=== PATIENT | male | born 1955 | race Caucasian/White ===

== ENCOUNTER 2023-06-08 06:33 | Outpatient (CLI) | payer MEDICARE, MEDICAID, SELFPAY ==
[2023-06-08] VITALS (7 sets, daily range): BP systolic 90–165; BP diastolic 57–101; PULSE 61–71; RESP 18; O2SAT 97–100; BMI 40.0
--- NOTE | 2023-06-08 06:38 | CT_ITS ---
APPROVED REPORT Computer Network Specialist: CLINICAL INDICATION Chest Pain TECHNIQUE Image Acquisition: A 128 slice MDCT scanner ([employer] View) was used for data acquisition. A noncontrast coronary calcium scan was performed. A CT attenuation threshold of 130 Hounsfield units (HU) was used for the detection of calcium in contiguous voxels of 1 sq mm in area to be counted as individual lesions. Bolus tracking in the ascending aorta with a threshold of 180 HU was performed. Immediately afterwards, ECG synchronized cardiac CT was then performed from the cardiac base to apex using retrospective gating with ECG tube current modulation. A total of 85 mL of Isovue 370 mg/mL contrast medium was administered at 5 mL/sec followed by a saline flush using a biphasic injection protocol. A tube voltage of 120 KVp was used. The patient received the following medications prior to the cardiac CT. 75 mg of oral metoprolol 5 mg of intravenous metoprolol 15 mg of oral ivabradine 0.8 mg of sublingual nitroglycerin The average heart rate at the time of acquisition was 58 bpm and regular. Image Reconstruction Transaxial images were reconstructed at 0.67 mm slide thickness. Data was reviewed interactively on an advanced workstation capable of 2 and 3-dimensional displays in all conventional reconstruction formats, including multiplanar reformations, maximum intensity projections, curved multiplanar reformations, and volume rendered reconstructions. When applicable, selected routine images describing the relevant coronary anatomy and pathology were saved and sent to PACS. Complications None Technical Quality Overall image quality was good. Coronary artery opacification was adequate. Total DLP (Dose-Length Product) is 2522.2 mGy-cm. The reported value represents the total of one or more individual components during the CT acquisition of this date and at this time, and as such, the same value may appear in more than one CT report depending on the interpreting/reporting physicians. COMPARISON None FINDINGS CT Coronary Calcium Scoring LMA (Left Main Artery) = 117 LAD (Left Anterior Descending) = 1306 LCX (Left Coronary Circumflex) = 67 RCA (Right Coronary Artery) = 1423 Total Calcium Score = 2913 using the AJ-130 method. The observed calcium score of 2913 is at 97th percentile for subjects of the same age, sex, and race/ethnicity. The interpretation of the calcium heart score is based on the following continuum*: 0 = no calcified plaque detected (risk of coronary artery disease is very low ??? less than 5%) 1-10 = calcium detected in extremely minimal levels (risk of coronary diseases is still low ??? less than 10%) 11-100 = mild levels of plaque detected with certainty (mild or minimal narrowing of heart arteries is likely) 101-400 = definite,at least moderate levels of plaque detected (relatively high risk of a heart attack within 3-5 years) >401-999 = extensive levels of plaque detected (high risk of heart attack, high levels of vascular disease are present, high likelihood of at least one significant coronary narrowing) *The calcium heart score quantifies the burden of coronary calcification/plaque in the coronary arteries. The calcium heart score is not able to evaluate the presence or burden of non-calcified (i.e. soft) plaque. There is also identifiable calcification in the aortic valve and ascending and descending thoracic aorta. Coronary CT Angiography The coronary arterial system is right dominant. Quantitative Stenosis Grading: Left Main (LM): The left main originates normally from the left sinus of Valsalva. The LM bifurcates into the left anterior descending artery and left circumflex artery. There is calcified plaque noted in the distal LM, with approximately 30-50% luminal stenosis. Left Anterior Descending (LAD) and Diagonal Branches: The LAD gives off 2 diagonal branch(es). There is mixed calcified/noncalcified plaque noted in the proximal and mid LAD segments (involving the diagonal branches) with up to 70-90% luminal stenosis. There is no evidence of LAD-myocardial bridge. Left Circumflex (LCX) and Obtuse Marginals (OM): The LCX gives off 1 Obtuse Marginal (OM) branch(es). There is mixed calcified/noncalcified plaque noted in the mid LCx, with incomplete opacification distally. Findings are suggestive of possible total/subtotal occlusion. Right Coronary Artery (RCA): The RCA originates normally from the right sinus of Valsalva. The RCA gives off a posterior descending artery (PDA) and posterolateral (PL) branches. There is mixed calcified/noncalcified plaque along the RCA (involving the ostial RCA), with approximately 50-70% luminal stenosis. Distally, there is additional vascular opacification noted, suggestive of presence of right to left collaterals. Non-Coronary Cardiac Findings: Analysis of the left ventricular (LV) structure and function was performed after 3-D reconstruction of the LV from axial images, with user-corrected automatic contouring for assessment of LV volumes and user-defined reconstruction from oblique planes for measurement of 3-D cardiac structure and function. -The left ventricle systolic function is normal. There is hypokinesis of the septal, inferior septal, and anterior septal LV beltran. -There is no left atrial appendage filling defect. Two right pulmonary veins and two left pulmonary veins drain normally into the left atrium. -No pericardial thickening or calcification. -Central and branch pulmonary arteries in the [id number] are unremarkable. -Thoracic aorta within the visualized thoracic aortic-branches in the [id number] is unremarkable. Extracardiac Structures No significant extra-cardiac findings. Note, however, that this study is focused on the cardiac findings. IMPRESSION -Extensive coronary calcification with an Agatston score = 2913 using the AJ-130 method. -The observed calcium score of 2913 is at 97th percentile for subjects of the same age, sex, and race/ethnicity. -Triple-vessel atherosclerotic coronary disease with presence of significant flow-limiting plaque in the LAD, LCx, and RCA. There is possible total/subtotal occlusion of the LCx with collateralization from the RCA. -CAD-RADS 5. Management recommendations per ACC/AHA guidelines*, as clinically appropriate. -Normal global LV systolic function. Hypokinesis of the septal, inferior septal, and anterior septal LV beltran. *Recommendations: CAD RADS 0: Reassurance. Consider non-atherosclerotic causes of chest pain. CAD RADS 1: Consider non-atherosclerotic causes of chest pain. Consider preventive therapy and risk factor modification. CAD RADS 2: Consider non-atherosclerotic causes of chest pain. Consider preventive therapy and risk factor modification, particularly for patients with nonobstructive plaque in multiple segments. CAD RADS 3: Consider further functional testing. Consider symptom-guided anti-ischemic and preventive pharmacotherapy as well as risk factor modification per published guideline statements. CAD RADS 4A: Consider further functional testing or invasive coronary angiography with revascularization per published guideline statements. Consider symptom-guided anti-ischemic and preventive pharmacotherapy as well as risk factor modification per published guideline statements. CAD RADS 4B: Invasive coronary angiography recommended with revascularization per published guideline statements. Consider symptom-guided anti-ischemic and preventive pharmacotherapy as well as risk factor modification per published guideline statements. CAD RADS 5: Consider invasive angiography and/or viability assessment with revascularization per published guideline statements. Consider symptom-guided anti-ischemic and preventive pharmacotherapy as well as risk factor modification per published guideline statements. CRITICAL RESULT None COMMUNICATION Per this written report The coronary and cardiac findings of this CCTA were reviewed, reported, and signed by Reid May MD (Plow [employer]aker) Conclusion Electronically signed by : Melissa May MD 06/13/2023 16:10:44
[2023-06-08] MEDS: METOPROLOL TARTRATE 50MG TABLET PO (07:52)
[2023-06-08] MEDS: IVABRADINE HCL 7.5MG TABLET PO (07:52)
[2023-06-08] MEDS: METOPROLOL TARTRATE 25MG TABLET 25 MG (07:52)
[2023-06-08 08:03] LABS: POC Glucose,Bedside 95 (70-110)
--- NOTE | 2023-06-08 08:43 | CA_ITS ---
APPROVED REPORT EXAM: Comprehensive 2D, Doppler, and color-flow Echocardiogram Stockfeed Miller: Marlyn Reilly, JAIRON, RVS Ht: 6 ft 0 in Wt: 297lbs BSA: 2.52 BP: 130/66 mmHg Indications: Abn ekg,HTN, DM, Obesity, Smoker, SOB 2D Dimensions IVSd 0.00 cm LVEF (Visual) 26.70 % PWd 0.00 cm LA Volume 46.50 mL LVDd 1.12 cm LA Volume Index 18.458234 mL/m2 (M/F) 16-34 LVDs 4.04 cm EF AP4 47.70 % Aortic Root 3.13 cm GL Strain -18.1 % Left Atrium 3.62 cm LVOT 2.18 cm (M/F) 1.5-2.5 M-Mode Dimensions LVDd 1.12 cm (3.5-5.7) LVDs 4.04 cm (3.5-5.7) IVSd 0.00 cm (0.6-1.1) PWd 0.00 cm (0.6-1.1) EPSs 0.64 cm FS 10.40% LV Diastology E Decel Time 231 (160-240 msec) E/A Ratio 0.99 MED E' 6.1 (>= 7 cm/sec) MED A' 8.90 cm/s E'/MED E' Ratio 10.79 (<= 14) LAT E' 5.7 (>= 10 cm/sec) LAT A' 9.30 cm/s E/LAT E' Ratio 11.54 (<= 14) Aortic Valve LVOT Max 84.0 (70-110 cm/s) CASANDRA Index 0.56 cm2/m2 LVOT VTI 17.95 cm AoV Peak Christiano. 217.0 (50-130 cm/s) AO Mean GR. 9.40 (<5 mmHg) AO VTI 47.9 (18-25 cm) CASANDRA (VTI) 1.40 (2.5-4.5 cm2) Mitral Valve MV E Max Christiano. 66.0 (40-130 cm/s) MV A Velocity 67.0 (40-130 cm/s) E/A Ratio 0.99 MV Decel. Time 231 (160-240 ms) Left Ventricle The left ventricle is normal size. The left ventricular systolic function is low normal. There is increased LV wall thickness. There is severe hypokinesis of the basal to mid inferior, inferoseptal, and inferolateral LV beltran. The left ventricular diastolic function is normal. LVEF is 50%. Right Ventricle The right ventricle is normal size. The right ventricular systolic function is normal. Atria The left atrium size is normal. The right atrium size is normal. There is no Doppler evidence of interatrial shunt. Aortic Valve The aortic valve is mildly thickened. There is no aortic valvular stenosis. No aortic regurgitation is present. Mitral Valve The mitral valve is mildly thickened. No evidence of mitral valve stenosis. Trace mitral regurgitation. Tricuspid Valve The tricuspid valve leaflets are thin and pliable. Trace tricuspid regurgitation. Pulmonic Valve The pulmonary valve is normal in structure. Trace pulmonic regurgitation. Great Vessels The aortic root is normal in size. The ascending aorta is not well-visualized. IVC is normal in size and collapses >50% with inspiration. Pericardium There is no pericardial effusion. Other Information Study Quality: Fair Conclusion Low normal LV systolic function (LVEF 50%). Severe hypokinesis of the basal to mid inferior, inferoseptal, and inferolateral LV beltran. No significant valvular stenosis or regurgitation. Electronically signed by : Melissa May MD 06/11/2023 01:31:32
[2023-06-08] MEDS: NITROGLYCERIN 0.4MG SL TABLET SL (09:10)
[2023-06-08] MEDS: METOPROLOL TARTRATE 5MG/5ML VIAL 5 MG IV (09:20)
[2023-06-08] MEDS: IOPAMIDOL-370 (76%);100ML BOTTLE 85 ML IV (09:34)
[2023-06-08] MEDS: 0.9 % SODIUM CHLORIDE 50 ML VIAL IV (09:34)
[2023-06-08] MEDS: SODIUM CHLORIDE 0.9% 10ML SYR (RAD ONLY) 10 ML IV (09:35)
== END 2023-06-08 09:43 | disposition home or self-care (01) ==
PROVIDERS: PCP Emergency Medicine; Visit Provider Physician Assistant
DX: I10 Essential (primary) hypertension (principal); R94.31 Abnormal electrocardiogram [ECG] [EKG]; F17.200 Nicotine dependence, unspecified, uncomplicated; R06.09 Other forms of dyspnea; I51.89 Other ill-defined heart diseases; E11.9 Type 2 diabetes mellitus without complications; Z79.4 Long term (current) use of insulin; E66.9 Obesity, unspecified; I25.10 Atherosclerotic heart disease of native coronary artery without angina pectoris
CPT/HCPCS: 75571; 75574; 82962; 93306; Q9967

== ENCOUNTER 2023-06-20 07:23 | Day surgery (SDC) | payer MEDICARE, MEDICAID, SELFPAY ==
[2023-06-20] VITALS (12 sets, daily range): BP systolic 126–199; BP diastolic 64–110; PULSE 62–85; RESP 17–18; TEMP 36.6–36.7; O2SAT 92–99; BMI 40.2
--- NOTE | 2023-06-20 07:06 | IR_ITS ---
APPROVED REPORT Patient Location: Outpatient PROCEDURES Left heart catheterization Left ventriculogram Selective coronary angiogram Selective engage the left subclavian artery with subclavian artery angiography INDICATION High risk CCTA, Known coronary artery disease, Angina pectoris, Abnormal echocardiogram, Preoperative evaluation to evaluate subclavian stenosis Informed consent was obtained prior to the procedure. COMPLICATIONS NONE Estimated Blood Loss: LESS THAN 10 ML TECHNIQUE One percent lidocaine used to anesthetize the right anterior aspect of the wrist. The right radial artery was accessed via the Seldinger technique. A 6 [place] sheath was placed in the right radial artery. 2.5 mg of Verapamil, 800 mcg of nitroglycerin, 1mg Lidocaine and 5000 U Heparin were given through the arterial sheath. The papa catheter was also used to perform left heart catheterization, left ventriculogram and selective coronary angiogram. After was determined patient would be referred for bypass surgery the catheter is placed in left subclavian artery and left subclavian artery angiography was performed to determine if the subclavian artery and left internal mammary artery were patent. At the end of the procedure the sheath was removed good hemostasis was achieved using Traclet band, patient was transferred to the postop holding area in stable condition. ANGIOGRAPHIC RESULTS The left main artery Is proximal and distal 30% stenoses The left anterior descending artery Is an ostial 40% stenosis followed by additional tandem 80% stenoses. First diagonal artery is a mid vessel 50% stenosis The circumflex artery Is nondominant and has proximal 50 followed by a calcified concentric 90% stenosis The right coronary artery Large dominant with diffuse mild to moderate vascular ectasia. There is a proximal 20 to 30% stenosis followed by an eccentric calcified 70% stenosis followed by additional 30% stenoses distally. There is an additional distal 60% eccentric calcified stenosis in the distal right coronary prior to the bifurcation. The posterior descending artery is large and has mid vessel and distal calcified 90% stenosis. A large posterior lateral branch has a mid vessel 90% stenosis The MADRIGAL ventriculogram reveals 50% The left ventricular end-diastolic pressure 10 mmHg Left subclavian artery is widely patent IMPRESSION Severe to critical three-vessel coronary disease as described above Preserved ejection fraction Normal LVEDP Widely patent left subclavian artery PLAN 1. Patient will be referred to [facility] for coronary bypass surgery evaluation 2. Continue high intensity statin along with aspirin 81 mg daily 3. Medical management for coronary disease Electronically signed by : Rohith Fisher MD 06/20/2023 11:25:10
--- NOTE | 2023-06-20 07:57 | SUR.PREOP ---
Pt states it is normally very difficult to obtain IV access on him and usual has to use an ultrasound to obtain access, asked patient if it was okay if we attempted IV access without using an US, pt agreeable, IV access obtained in right AC after 1 attempted, pt tolerated well.
[2023-06-20 08:03] LABS: Chloride 105 mmol/L (98-107)
[2023-06-20 08:04] LABS: Potassium 4.1 mmoL/L (3.5-5.1); Sodium 138 mmol/L (136-145)
[2023-06-20 08:07] LABS: Anion Gap 7.1 mEq/L (5-15); Blood Urea Nitrogen 16 mg/dl (9-20); Calcium 9.5 mg/dl (8.4-10.2); Carbon Dioxide 30 mmol/L (22.0-30.0); Creatinine Clearance Estimated 102 mL/min (50-200); Estimated Glomerular Filt Rate 55 ml/min (>60); GFR (African American) 66 ML/MIN (>60); Glucose 84 mg/dl (74-100)
[2023-06-20 08:12] LABS: Basophils # 0.1 K/mm3 (0-0.2); Basophils % 0.9 % (0.1-2.0); Eosinophils # 0.2 K/mm3 (0.0-0.4); Eosinophils % 2.7 % (0.1-12.0); Hematocrit 42.9 % (42.0-52.0); Hemoglobin 14.1 g/dL (14.1-18.0); Lymphocytes # 1.4 K/mm3 (0.7-4.5); Lymphocytes % 25.9 % (10-50); Mean Corpuscular HGB Conc 32.8 g/dL (31.8-35.4); Mean Corpuscular Hemoglobin 31.4 pg (27.0-31.2); Mean Corpuscular Volume 95.8 fl (80-94); Mean Platelet Volume 8.5 fl (7.4-10.4); Monocytes # 0.4 K/mm3 (0.1-1.0); Monocytes % 6.3 % (1.7-9.3); Neutrophils # 3.5 K/mm3 (1.8-7.8); Neutrophils % 64.3 % (37.0-80.0); Platelet Count 195 K/mm3 (142-424); Red Blood Count 4.48 M/mm3 (4.60-6.20); Red Cell Distribution Width 14.6 % (11.5-17.5); White Blood Count 5.5 K/mm3 (4.8-10.8)
[2023-06-20] MEDS: 0.9 % SODIUM CHLORIDE 500 ML 25 ML IV (09:30)
[2023-06-20] MEDS: HEPARIN 1,000 UNITS/500ML NS (CATH LAB) 3000 UNIT IV (09:30)
[2023-06-20] MEDS: LIDOCAINE 1% 10ML MDV 20 ML IJ (09:30)
[2023-06-20] MEDS: NITROGLYCERIN 800MCG/8ML SYR (CATH LAB) 800 MCG IA (09:31)
[2023-06-20] MEDS: VERAPAMIL 2.5MG/ML 2ML VIAL 2.5 MG IV (09:31)
[2023-06-20] MEDS: diphenhydrAMINE 50MG/ML VIAL 50 MG IV (09:31)
[2023-06-20] MEDS: HEPARIN 1,000 UNITS/ML 10ML VIAL (CATH LAB) 10000 UNIT IV (09:31)
[2023-06-20] MEDS: FENTANYL 100MCG/2ML VIAL 50 MCG IV (09:48)
[2023-06-20] MEDS: MIDAZOLAM HCL 1MG/1ML 5ML VIAL 1 MG IV (09:48)
[2023-06-20] MEDS: IOPAMIDOL-370 (76%);100ML BOTTLE 80 ML IV (13:13)
== END 2023-06-20 13:18 | disposition home or self-care (01) ==
PROVIDERS: PCP Emergency Medicine; Visit Provider Internal Medicine
DX: I25.10 Atherosclerotic heart disease of native coronary artery without angina pectoris (principal); R94.31 Abnormal electrocardiogram [ECG] [EKG]; F17.210 Nicotine dependence, cigarettes, uncomplicated; I10 Essential (primary) hypertension; Z79.899 Other long term (current) drug therapy; E11.9 Type 2 diabetes mellitus without complications; Z79.4 Long term (current) use of insulin; Z79.85 Long-term (current) use of injectable non-insulin antidiabetic drugs
CPT/HCPCS: 36225; 80048; 85025; 93458; 99152; C1725; C1760; C1769; J1644; Q9967

== ENCOUNTER 2023-09-27 14:59 | Outpatient (CLI) | payer MEDICARE, MEDICAID, SELFPAY ==
[2023-09-27 15:34] LABS: Basophils % 0.5 % (0.1-2.0); Eosinophils # 0.1 K/mm3 (0.0-0.4); Eosinophils % 2.6 % (0.1-12.0); Hematocrit 36.4 % (42.0-52.0); Hemoglobin 11.5 g/dL (14.1-18.0); Lymphocytes # 1.2 K/mm3 (0.7-4.5); Lymphocytes % 21.2 % (10-50); Mean Corpuscular HGB Conc 31.6 g/dL (31.8-35.4); Mean Corpuscular Hemoglobin 26.6 pg (27.0-31.2); Mean Corpuscular Volume 84.2 fl (80-94); Mean Platelet Volume 8.2 fl (7.4-10.4); Monocytes # 0.3 K/mm3 (0.1-1.0); Monocytes % 5.2 % (1.7-9.3); Neutrophils # 3.9 K/mm3 (1.8-7.8); Neutrophils % 70.5 % (37.0-80.0); Platelet Count 242 K/mm3 (142-424); Red Blood Count 4.32 M/mm3 (4.60-6.20); Red Cell Distribution Width 16.8 % (11.5-17.5); White Blood Count 5.5 K/mm3 (4.8-10.8)
[2023-09-27 16:11] LABS: Alanine Aminotransferase 32 U/L (12-78); Albumin Level 3.9 g/dl (3.5-5.0); Alkaline Phosphatase 60 U/L (38-126); Anion Gap 9.4 mEq/L (5-15); Aspartate Amino Transferase 49 U/L (17-59); Bilirubin,Indirect 0.5 mg/dL (0.0-0.9); Bilirubin,Total 0.5 mg/dl (0.2-1.3); Bilirubin,Unconjugated 0.5 mg/dL (0.0-1.1); Blood Urea Nitrogen 21 mg/dl (9-20); Calcium 9.5 mg/dl (8.4-10.2); Carbon Dioxide 28 mmol/L (22.0-30.0); Chloride 101 mmol/L (98-107); Chol/HDL Ratio 3.9 (1-3.5); Cholesterol 124 mg/dl (140-200); Creatinine Clearance Estimated 107 mL/min (50-200); Estimated Glomerular Filt Rate 60 ml/min (>60); GFR (African American) 72 ML/MIN (>60); Glucose 208 mg/dl (74-100); HDL Cholesterol 32 mg/dl (40-60); Magnesium 1.6 mg/dl (1.6-2.3); Potassium 4.4 mmoL/L (3.5-5.1); Sodium 134 mmol/L (136-145); Total Protein,Serum 6.6 g/dl (6.3-8.2); Triglycerides 160 mg/dl (30-150); VLDL Cholesterol 32 mg/dL (0-40)
[2023-09-27 16:22] LABS: Direct LDL Cholesterol 66.07 mg/dL (100-129)
[2023-09-27 16:26] LABS: Free T4 (Free Thyroxine) 3.14 ng/dl (0.78-2.19)
[2023-09-27 16:41] LABS: Thyroid Stimulating Hormone < 0.02 uIU/mL (0.465-4.68)
[2023-09-27 17:17] LABS: Folate > 20.00 ng/mL; Vitamin B12 874 pg/mL (239-931)
[2023-09-27 18:33] LABS: Iron 42 ug/dL (49-181)
[2023-09-27 18:42] LABS: Total Iron Binding Capacity 461 ug/dL (261-462)
[2023-09-27 19:24] LABS: Ferritin 17.2 ng/ml (17.9-464)
== END 2023-09-27 23:59 | disposition home or self-care (01) ==
LOC: LAB 15:01
PROVIDERS: PCP Emergency Medicine; Visit Provider Internal Medicine
DX: R42 Dizziness and giddiness (principal); R53.83 Other fatigue; R94.31 Abnormal electrocardiogram [ECG] [EKG]; E11.9 Type 2 diabetes mellitus without complications; Z95.1 Presence of aortocoronary bypass graft; R06.00 Dyspnea, unspecified; I10 Essential (primary) hypertension; G25.81 Restless legs syndrome; M79.661 Pain in right lower leg
CPT/HCPCS: 36415; 80048; 80061; 80076; 82607; 82728; 82746; 83540; 83550; 83735; 84439; 84443; 85025; 93225; 93227

== ENCOUNTER 2023-09-29 15:22 | Outpatient (CLI) | payer MEDICARE, MEDICAID, SELFPAY ==
[2023-09-27 15:34] LABS: Basophils % 0.5 % (0.1-2.0); Eosinophils # 0.1 K/mm3 (0.0-0.4); Eosinophils % 2.6 % (0.1-12.0); Hematocrit 36.4 % (42.0-52.0); Hemoglobin 11.5 g/dL (14.1-18.0); Lymphocytes # 1.2 K/mm3 (0.7-4.5); Lymphocytes % 21.2 % (10-50); Mean Corpuscular HGB Conc 31.6 g/dL (31.8-35.4); Mean Corpuscular Hemoglobin 26.6 pg (27.0-31.2); Mean Corpuscular Volume 84.2 fl (80-94); Mean Platelet Volume 8.2 fl (7.4-10.4); Monocytes # 0.3 K/mm3 (0.1-1.0); Monocytes % 5.2 % (1.7-9.3); Neutrophils # 3.9 K/mm3 (1.8-7.8); Neutrophils % 70.5 % (37.0-80.0); Platelet Count 242 K/mm3 (142-424); Red Blood Count 4.32 M/mm3 (4.60-6.20); Red Cell Distribution Width 16.8 % (11.5-17.5); White Blood Count 5.5 K/mm3 (4.8-10.8)
[2023-09-27 16:11] LABS: Alanine Aminotransferase 32 U/L (12-78); Albumin Level 3.9 g/dl (3.5-5.0); Alkaline Phosphatase 60 U/L (38-126); Anion Gap 9.4 mEq/L (5-15); Aspartate Amino Transferase 49 U/L (17-59); Bilirubin,Indirect 0.5 mg/dL (0.0-0.9); Bilirubin,Total 0.5 mg/dl (0.2-1.3); Bilirubin,Unconjugated 0.5 mg/dL (0.0-1.1); Blood Urea Nitrogen 21 mg/dl (9-20); Calcium 9.5 mg/dl (8.4-10.2); Carbon Dioxide 28 mmol/L (22.0-30.0); Chloride 101 mmol/L (98-107); Chol/HDL Ratio 3.9 (1-3.5); Cholesterol 124 mg/dl (140-200); Creatinine Clearance Estimated 107 mL/min (50-200); Estimated Glomerular Filt Rate 60 ml/min (>60); GFR (African American) 72 ML/MIN (>60); Glucose 208 mg/dl (74-100); HDL Cholesterol 32 mg/dl (40-60); Magnesium 1.6 mg/dl (1.6-2.3); Potassium 4.4 mmoL/L (3.5-5.1); Sodium 134 mmol/L (136-145); Total Protein,Serum 6.6 g/dl (6.3-8.2); Triglycerides 160 mg/dl (30-150); VLDL Cholesterol 32 mg/dL (0-40)
[2023-09-27 16:22] LABS: Direct LDL Cholesterol 66.07 mg/dL (100-129)
[2023-09-27 16:26] LABS: Free T4 (Free Thyroxine) 3.14 ng/dl (0.78-2.19)
[2023-09-27 16:41] LABS: Thyroid Stimulating Hormone < 0.02 uIU/mL (0.465-4.68)
[2023-09-27 17:17] LABS: Folate > 20.00 ng/mL; Vitamin B12 874 pg/mL (239-931)
[2023-09-27 18:33] LABS: Iron 42 ug/dL (49-181)
[2023-09-27 18:42] LABS: Total Iron Binding Capacity 461 ug/dL (261-462)
[2023-09-27 19:24] LABS: Ferritin 17.2 ng/ml (17.9-464)
== END 2023-09-29 23:59 | disposition home or self-care (01) ==
LOC: RT 15:23
PROVIDERS: PCP Emergency Medicine; Visit Provider Internal Medicine
DX: R42 Dizziness and giddiness (principal); I10 Essential (primary) hypertension; E11.9 Type 2 diabetes mellitus without complications; R53.83 Other fatigue; R94.31 Abnormal electrocardiogram [ECG] [EKG]; Z95.1 Presence of aortocoronary bypass graft; Z68.39 Body mass index [BMI] 39.0-39.9, adult; F17.210 Nicotine dependence, cigarettes, uncomplicated
CPT/HCPCS: 36415; 80048; 80061; 80076; 82607; 82728; 82746; 83540; 83550; 83735; 84439; 84443; 85025; 93270

== ENCOUNTER 2023-10-05 11:09 | Outpatient (CLI) | payer MEDICARE, MEDICAID, SELFPAY ==
--- NOTE | 2023-10-05 | CA_ITS ---
APPROVED REPORT Exam: Pharmacologic Technologist: Maria G Rodgers, Ht: 6 ft 0 in Wt: 292 lbs BSA: 2.50 m2 HR: 77 bpm BP: 144/66 mmHg Indications: Fatigue, dizziness, dyspnea Medical History Medications: Omeprazole,,,,, Levothyroxine,,,,, Aspirin,,,,, Gabapentin,,,,, Metoprolol Tartrate,,,,, Glimepiride,,,,, Ropinirole,,,,, TAMSULOSIN,,,,, INSULIN,,,,, Albuterol,,,,, FeNOfibrate,,,,, Cyclobenzaprine,,,,, Stress Test Details Test: LEXISCAN Reason for pharmacologic stress test: physical limitation. HR Resting HR: 77 bpm Max Heart Rate (APMHR): 150 bpm Max HR Achieved: 88 bpm Target HR (85% APMHR): 128 bpm % of APMHR: 59 Recovery HR: 84 bpm BP Resting BP: 144.0/66.0 mmHg Max BP: 144.0/66.0 mmHg Recovery BP: 127.0/58.0 mmHg ECG Resting ECG: NSR, right axis deviation, old high lateral UT, ST-T abns inferiorly & laterally Stress ECG: No significant ST changes Arrhythmia: None Clinical Exercise duration: 04:02 min Highest Stage Achieved: Exercise capacity: 1.0 METs Stress ECG Conclusion Symptoms: Mild SOA, head discomfort. No CP. Arrhythmias/Ectopy: None ST-T Changes: No significant ST changes. Conclusion: Unremarkable Lexiscan stress. Myoview images reported separately. Test Summary REST . . . . . . . Resting REST 07:54 . . 77 . 144/ 66 . . Stage 1 01:00 . . 85 . . . . Stage 2 01:00 . . 85 . . . . Stage 3 01:00 . . 88 . 102/ 46 . . Stage 4 01:00 . . 85 . 103/ 50 . . Stage 4 01:02 . . 85 . 103/ 50 . Stop exercise at 04:02 RECOVERY 01:00 . . 83 . 114/ 55 . . RECOVERY 02:00 . . 85 . 121/ 56 . . RECOVERY 03:00 . . 84 . 121/ 56 . . RECOVERY 03:33 . . 84 . 127/ 58 . . Electronically signed by : Melissa May MD 10/05/2023 19:36:56
--- NOTE | 2023-10-05 11:11 | NM_ITS ---
APPROVED REPORT Exam: Nuclear Stress Test Indication: CABG, HTN, DM, HYPERLIPIDEMIA, FORMER SMOKER, SOB, FATIGUE Patient Location: Outpatient Stress Tech: Maria G Paz OR Tech:STEPHANIE Haas RT (R)(N)(M) Ht: 6 ft 0 in Wt: 285 lbs HR: 77 bpm BP: 144/66 mmHg BSA: 2.48 m2 Rhythm: NSR TID: 1.31 History: CABG, HTN, DM, HYPERLIPIDEMIA, FORMER SMOKER, SOB, FATIGUE Procedure: Patient received 0.4 mg of intravenous Lexiscan, resting heart rate 77 bpm, resting blood pressure 144/66 mmHg, with Lexiscan maximum heart rate achieved was 88 bpm which is % of the maximum predicted heart rate and blood pressure was 144/66 mmHg. With Lexiscan, patient denied any complaint of chest pain. Cardiac Stress and Resting SPECT Images: Cardiac Stress and Resting SPECT images were obtained using technetium 99m Myoview 31.2 mCi stress and 9.97 mCi at rest. Resting and stress imaging from supine and prone positions demonstrate no evidence of focal fixed or reversible perfusion defects. There is increase in transient ischemic dilatation ratio (TID 1.31), suggestive of possible multivessel disease or balanced ischemia. Gated imaging demonstrates normal global and regional LV systolic function. LVEF is calculated at 61%. Conclusion: No evidence of focal fixed or reversible perfusion defects. There is increase in transient ischemic dilatation ratio (TID 1.31), suggestive of possible multivessel disease or balanced ischemia. Gated imaging demonstrates normal global and regional LV systolic function. LVEF is calculated at 61%. Electronically signed by : Melissa May MD 10/05/2023 19:38:55
--- NOTE | 2023-10-05 11:11 | CA_ITS ---
FINAL REPORT TECHNIQUE: Duplex color Doppler with spectral analysis performed of the lower extremities. CLINICAL HISTORY: Pain in BLE s, RLS,CAD,CABG,SMOKER,HTN,HLD FINDINGS: RIGHT LOWER EXTREMITY: Velocities cm/sec: DIGITAL BUSINESS ANALYST: 118 SFA Prox: 92 SFA Mid: 64 SFA Dist: 133 POP: 65 Wong: 67 CUSTOMER LOYALTY REPRESENTATIVE: 103 Waveforms are biphasic. LEFT LOWER EXTREMITY: Velocities cm/sec: DIGITAL BUSINESS ANALYST: 146 SFA Prox: 74 SFA Mid: 57 SFA Dist: 110 POP: 80 Wong: 57 CUSTOMER LOYALTY REPRESENTATIVE: 99 Waveforms are biphasic. IMPRESSION: Biphasic waveforms throughout. No significant stenosis. Reviewed, Interpreted and Dictated by Doyle Frances III, MD Transcribed by Vita Ashraf Authenticated and . [facility]
--- NOTE | 2023-10-05 11:11 | CA_ITS ---
APPROVED REPORT EXAM: Comprehensive 2D, Doppler, and color-flow Echocardiogram Hydrologic Engineer: Eduarda March RVT Ht: 6 ft 0 in Wt: 292lbs BSA: 2.50 BP: 145/58 mmHg Indications: FATIGUE,DYSPENA,CABG IN JUNE 2023,DM,SMOKER,HTN,HLD,EDEMA 2D Dimensions LA Volume 46.30 mL LA Volume Index 18.52 mL/m2 (M/F) 16-34 M-Mode Dimensions RVDd 1.97 cm (0.9-2.6) LA Diam 3.13 cm (1.9-4.0) LVDd 5.17 cm (3.5-5.7) LVDs 3.81 cm (3.5-5.7) IVSd 1.55 cm (0.6-1.1) PWd 0.66 cm (0.6-1.1) EF (Teich) 51.30% FS 26.30% EDV (Teich) 127.80 mL TAPSE 1.70 (<1.7) ESV (Teich) 62.30 mL LV Diastology E Decel Time 237 (160-240 msec) E/A Ratio 0.7 Aortic Valve CASANDRA Index 0.48 cm2/m2 AoV Peak Christiano. 241.0 (50-130 cm/s) AO Peak GR. 23.20 mmHg AO Mean GR. 12.70 (<5 mmHg) AO VTI 43.9 (18-25 cm) CASANDRA (VTI) 1.23 (2.5-4.5 cm2) Mitral Valve MV E Max Christiano. 48.0 (40-130 cm/s) MV A Velocity 73.0 (40-130 cm/s) E/A Ratio 0.66 MV PHT 69.0 ms Pulmonary Valve PV Peak Velocity 118.0 (50-150 cm/s) Left Ventricle The left ventricle is normal size. The left ventricular systolic function is normal. The left ventricular ejection fraction is within the normal range. There is increased LV wall thickness. There is normal LV segmental wall motion. Transmitral Doppler flow pattern suggests impaired LV relaxation. LVEF is 55%. Right Ventricle The right ventricle is normal size. The right ventricular systolic function is normal. Atria The left atrium size is normal. The right atrium size is normal. There is no Doppler evidence of interatrial shunt. Aortic Valve The aortic valve is mildly thickened. Mild aortic stenosis. Mean AV gradient 12 mmHg. Max AV gradient 25 mmhg. Peak velocity 2.5 m/s. CASANDRA by 2D planimetry is 1.7 cm2. Trace aortic regurgitation. Mitral Valve The mitral valve is normal in structure. No evidence of mitral valve stenosis. Trace mitral regurgitation. Tricuspid Valve The tricuspid valve leaflets are thin and pliable. Trace tricuspid regurgitation. There is insufficient TR jet to estimate RVSP. Pulmonic Valve The pulmonary valve is normal in structure. Trace pulmonic regurgitation. Great Vessels The aortic root is normal in size. The ascending aorta is not well visualized. IVC is normal in size and collapses >50% with inspiration. Pericardium There is no pericardial effusion. Other Information Study Quality: Fair Conclusion Normal biventricular systolic function. Mild aortic stenosis (mean AV gradient 12 mmHg. Max AV gradient 25 mmHg. Peak velocity 2.5 m/s. CASANDRA by 2D planimetry is 1.7 cm2). Electronically signed by : Melissa May MD 10/08/2023 20:47:22
[2023-10-05] MEDS: SODIUM CHLORIDE 0.9% 10ML SYR (RAD ONLY) 10 ML IV ×2 (11:50→12:45)
[2023-10-05] MEDS: REGADENOSON 0.4MG/5ML SYRINGE 0.4 MG IV (12:45)
[2023-10-05] MEDS: ISOTOPE MYOVIEW (PER STUDY) 1 DOSE IV (13:35)
== END 2023-10-05 23:59 | disposition home or self-care (01) ==
LOC: RAD 11:11
PROVIDERS: PCP Emergency Medicine; Visit Provider Internal Medicine
DX: Z95.1 Presence of aortocoronary bypass graft (principal); R42 Dizziness and giddiness; R53.83 Other fatigue; R94.31 Abnormal electrocardiogram [ECG] [EKG]; I73.9 Peripheral vascular disease, unspecified; G25.81 Restless legs syndrome; M79.661 Pain in right lower leg; M79.662 Pain in left lower leg; R06.00 Dyspnea, unspecified
CPT/HCPCS: 78452; 93017; 93018; 93306; 93925; A9502; J2785

== ENCOUNTER 2023-10-26 14:36 | Outpatient (CLI) | payer MEDICARE, MEDICAID, SELFPAY ==
[2023-10-26 15:00] LABS: Basophils % 0.6 % (0.1-2.0); Eosinophils # 0.2 K/mm3 (0.0-0.4); Eosinophils % 2.9 % (0.1-12.0); Hematocrit 38.9 % (42.0-52.0); Hemoglobin 12.1 g/dL (14.1-18.0); Lymphocytes # 1.7 K/mm3 (0.7-4.5); Lymphocytes % 30.8 % (10-50); Mean Corpuscular HGB Conc 31.1 g/dL (31.8-35.4); Mean Corpuscular Hemoglobin 25.8 pg (27.0-31.2); Mean Corpuscular Volume 82.8 fl (80-94); Mean Platelet Volume 9.1 fl (7.4-10.4); Monocytes # 0.3 K/mm3 (0.1-1.0); Monocytes % 5.1 % (1.7-9.3); Neutrophils # 3.4 K/mm3 (1.8-7.8); Neutrophils % 60.5 % (37.0-80.0); Platelet Count 267 K/mm3 (142-424); Red Cell Distribution Width 17.6 % (11.5-17.5); White Blood Count 5.6 K/mm3 (4.8-10.8)
[2023-10-26 15:58] LABS: Alanine Aminotransferase 35 U/L (12-78); Albumin Level 3.9 g/dl (3.5-5.0); Alkaline Phosphatase 51 U/L (38-126); Anion Gap 10.6 mEq/L (5-15); Aspartate Amino Transferase 57 U/L (17-59); Bilirubin,Indirect 0.5 mg/dL (0.0-0.9); Bilirubin,Total 0.5 mg/dl (0.2-1.3); Bilirubin,Unconjugated 0.5 mg/dL (0.0-1.1); Blood Urea Nitrogen 18 mg/dl (9-20); Calcium 9.6 mg/dl (8.4-10.2); Carbon Dioxide 30 mmol/L (22.0-30.0); Chloride 97 mmol/L (98-107); Cholesterol 175 mg/dl (140-200); Estimated Glomerular Filt Rate 55 ml/min (>60); GFR (African American) 66 ML/MIN (>60); Glucose 206 mg/dl (74-100); HDL Cholesterol 35 mg/dl (40-60); Magnesium 1.4 mg/dl (1.6-2.3); Potassium 4.6 mmoL/L (3.5-5.1); Sodium 133 mmol/L (136-145); Total Protein,Serum 6.8 g/dl (6.3-8.2); Triglycerides 273 mg/dl (30-150); VLDL Cholesterol 55 mg/dL (0-40)
[2023-10-26 16:10] LABS: Direct LDL Cholesterol 95.93 mg/dL (100-129)
[2023-10-26 16:15] LABS: Free T4 (Free Thyroxine) 1.98 ng/dl (0.78-2.19)
[2023-10-26 16:27] LABS: Thyroid Stimulating Hormone 0.07 uIU/mL (0.465-4.68)
== END 2023-10-26 23:59 | disposition home or self-care (01) ==
LOC: LAB 14:37
PROVIDERS: PCP Emergency Medicine; Visit Provider Internal Medicine
DX: I25.10 Atherosclerotic heart disease of native coronary artery without angina pectoris (principal); R93.1 Abnormal findings on diagnostic imaging of heart and coronary circulation; I35.0 Nonrheumatic aortic (valve) stenosis; M79.661 Pain in right lower leg; M79.662 Pain in left lower leg; G25.81 Restless legs syndrome; R53.83 Other fatigue; R42 Dizziness and giddiness; Z95.1 Presence of aortocoronary bypass graft; R94.30 Abnormal result of cardiovascular function study, unspecified; R06.00 Dyspnea, unspecified; F17.200 Nicotine dependence, unspecified, uncomplicated; R94.31 Abnormal electrocardiogram [ECG] [EKG]; E11.9 Type 2 diabetes mellitus without complications; I10 Essential (primary) hypertension
CPT/HCPCS: 36415; 80048; 80061; 80076; 83735; 84439; 84443; 85025

== ENCOUNTER 2023-11-02 08:11 | Day surgery (SDC) | payer MEDICARE, MEDICAID, SELFPAY ==
[2023-11-02] VITALS (11 sets, daily range): BP systolic 127–176; BP diastolic 45–96; PULSE 61–76; RESP 18; O2SAT 97–99; BMI 39.6
--- NOTE | 2023-11-02 07:46 | IR_ITS ---
APPROVED REPORT Patient Location: Outpatient Bursar: STEPHANIE Valentine RT (R) PROCEDURES Left heart catheterization Left ventriculogram Selective coronary angiogram Selective engage the left internal mammary artery to the diagonal artery and LAD Selective engagement of the saphenous vein graft to the first and second obtuse marginal artery Selective engagement of saphenous vein graft to the posterior descending artery Bilateral selective renal angiography INDICATION Coronary artery disease, History of coronary bypass surgery, Accelerated angina pectoris, Abnormal stress test, Malignant hypertension suspect renal artery stenosis, Chronic renal failure creatinine 1.3 suspect renal artery stenosis, Suspect renovascular hypertension, Informed consent was obtained prior to the procedure. COMPLICATIONS NONE Estimated Blood Loss: LESS THAN 10 ML TECHNIQUE One percent lidocaine used to anesthetize the right groin. The right femoral artery was accessed via the Seldinger technique and a 5 [place] sheath was placed in the right femoral artery. A JL 4, JR4 catheter were used to perform left heart catheterization, left ventriculogram selective coronary angiography as well as selective engagement of the 2 vein grafts and the left internal mammary artery. Patient's blood pressure was 200 mmHg during the cardiac catheterization. He had a creatinine of 1.3 with Poly-vascular disease therefore there was a high suspicion for renal artery stenosis. Because of this the JR4 catheter was used to cannulate each renal artery during the diagnostic angiogram. The JR4 catheter was used to perform bilateral selective renal angiography. An Amplatz 1 catheter was used to select the saphenous vein graft at the end the procedure the patient was transferred to the postop putting in stable condition for sheath removal. ANGIOGRAPHIC RESULTS The left main artery Normal The left anterior descending artery Has ostial 70% proximal 80% mid vessel 90% stenosis. There is evidence of competitive flow from the left internal mammary artery The circumflex artery Has proximal 8090% stenoses gives rise to a small first obtuse marginal artery and then subtotally occluded in the second obtuse marginal artery with evidence of competitive flow The right coronary artery Dominant and has moderate vascular ectasia with a proximal eccentric 40 to 50% calcified stenosis mid vessel 40 to 50% stenosis. Pedal flow is identified in the posterior descending artery The MADRIGAL ventriculogram reveals Normal 60% The left ventricular end-diastolic pressure 10 mmHg There is no transaortic valve gradient upon pullback with a JR 4 5 [place] catheter JACOBS is widely patent and appears to anastomose to a small diagonal artery and then skip to the LAD. The LAD is patent Saphenous vein graft to the posterior descending arteries patent Saphenous vein graft to the circumflex artery is a skip graft. The first anastomosis onto the first obtuse marginal artery is widely patent as is the limb supplying the second obtuse marginal artery Right renal artery singular normal Left renal artery singular normal IMPRESSION Patent coronary arteries as described above Normal ejection fraction Normal LVEDP Normal renal arteries Severe hypertension during diagnostic angiogram which could account for patient's dyspnea PLAN 1. Medical management for coronary disease 2. Tighter management of hypertension 3. Recommend pulmonary evaluation for dyspnea 4. Risk factor modification Electronically signed by : Rohith Fisher MD 11/02/2023 11:39:07
[2023-11-02 08:37] LABS: Basophils % 0.9 % (0.1-2.0); Eosinophils # 0.1 K/mm3 (0.0-0.4); Eosinophils % 3.1 % (0.1-12.0); Hematocrit 38.6 % (42.0-52.0); Hemoglobin 12.1 g/dL (14.1-18.0); Lymphocytes # 1.5 K/mm3 (0.7-4.5); Lymphocytes % 31.8 % (10-50); Mean Corpuscular HGB Conc 31.2 g/dL (31.8-35.4); Mean Corpuscular Hemoglobin 25.8 pg (27.0-31.2); Mean Corpuscular Volume 82.6 fl (80-94); Mean Platelet Volume 8.7 fl (7.4-10.4); Monocytes # 0.3 K/mm3 (0.1-1.0); Monocytes % 5.9 % (1.7-9.3); Neutrophils # 2.7 K/mm3 (1.8-7.8); Neutrophils % 58.3 % (37.0-80.0); Platelet Count 242 K/mm3 (142-424); Red Blood Count 4.67 M/mm3 (4.60-6.20); Red Cell Distribution Width 18.2 % (11.5-17.5); White Blood Count 4.6 K/mm3 (4.8-10.8)
[2023-11-02 08:42] LABS: Chloride 104 mmol/L (98-107)
[2023-11-02 08:43] LABS: Potassium 4.1 mmoL/L (3.5-5.1); Sodium 138 mmol/L (136-145)
[2023-11-02 08:46] LABS: Anion Gap 9.1 mEq/L (5-15); Blood Urea Nitrogen 17 mg/dl (9-20); Calcium 8.8 mg/dl (8.4-10.2); Carbon Dioxide 29 mmol/L (22.0-30.0); Creatinine Clearance Estimated 99 mL/min (50-200); Estimated Glomerular Filt Rate 55 ml/min (>60); GFR (African American) 66 ML/MIN (>60); Glucose 155 mg/dl (74-100)
[2023-11-02] MEDS: LIDOCAINE 1% 10ML MDV 20 ML IJ (10:51)
[2023-11-02] MEDS: diphenhydrAMINE 50MG/ML VIAL 50 MG IV (10:51)
[2023-11-02] MEDS: 0.9 % SODIUM CHLORIDE 500 ML 25 ML IV (10:52)
[2023-11-02] MEDS: HEPARIN 1,000 UNITS/500ML NS (CATH LAB) 3000 UNIT IV (10:52)
[2023-11-02] MEDS: MIDAZOLAM HCL 1MG/1ML 5ML VIAL 1 MG IV (11:23)
[2023-11-02] MEDS: FENTANYL 100MCG/2ML VIAL 50 MCG IV (11:23)
[2023-11-02] MEDS: IOPAMIDOL-370 (76%);100ML BOTTLE 110 ML IV (12:22)
== END 2023-11-02 14:31 | disposition home or self-care (01) ==
PROVIDERS: PCP Emergency Medicine; Visit Provider Internal Medicine
DX: I25.118 Atherosclerotic heart disease of native coronary artery with other forms of angina pectoris (principal); Z95.1 Presence of aortocoronary bypass graft; I15.0 Renovascular hypertension; I70.1 Atherosclerosis of renal artery; I10 Essential (primary) hypertension; F17.210 Nicotine dependence, cigarettes, uncomplicated; Z79.899 Other long term (current) drug therapy; Z79.4 Long term (current) use of insulin; Z79.85 Long-term (current) use of injectable non-insulin antidiabetic drugs; E11.9 Type 2 diabetes mellitus without complications; E03.9 Hypothyroidism, unspecified; I35.0 Nonrheumatic aortic (valve) stenosis
CPT/HCPCS: 36252; 80048; 85025; 93459; 99152; 99153; C1725; C1769; C1894; J1200; J1644; J2250; J3010; Q9967

== ENCOUNTER 2024-01-18 11:10 | Outpatient (CLI) | payer MEDICARE, MEDICAID, SELFPAY ==
[2024-01-18 11:41] LABS: Basophils % 0.6 % (0.1-2.0); Eosinophils # 0.1 K/mm3 (0.0-0.4); Eosinophils % 1.1 % (0.1-12.0); Hematocrit 44.3 % (42.0-52.0); Hemoglobin 14.7 g/dL (14.1-18.0); Lymphocytes # 1.4 K/mm3 (0.7-4.5); Lymphocytes % 25.3 % (10-50); Mean Corpuscular HGB Conc 33.2 g/dL (31.8-35.4); Mean Corpuscular Hemoglobin 29.8 pg (27.0-31.2); Mean Corpuscular Volume 89.8 fl (80-94); Mean Platelet Volume 8.1 fl (7.4-10.4); Monocytes # 0.3 K/mm3 (0.1-1.0); Monocytes % 5.6 % (1.7-9.3); Neutrophils # 3.8 K/mm3 (1.8-7.8); Neutrophils % 67.3 % (37.0-80.0); Platelet Count 215 K/mm3 (142-424); Red Blood Count 4.94 M/mm3 (4.60-6.20); Red Cell Distribution Width 16.2 % (11.5-17.5); White Blood Count 5.6 K/mm3 (4.8-10.8)
[2024-01-18 11:54] LABS: Albumin Level 4.7 g/dl (3.5-5.0); Chloride 99 mmol/L (98-107); Sodium 137 mmol/L (136-145)
[2024-01-18 11:57] LABS: Alanine Aminotransferase 39 U/L (12-78); Albumin/Globulin Ratio 1.9 (1.1-1.8); Alkaline Phosphatase 55 U/L (38-126); Aspartate Amino Transferase 51 U/L (17-59); Bilirubin,Total 0.7 mg/dl (0.2-1.3); Blood Urea Nitrogen 20 mg/dl (9-20); Carbon Dioxide 30 mmol/L (22.0-30.0); Estimated Glomerular Filt Rate 60 ml/min (>60); GFR (African American) 72 ML/MIN (>60); Globulin 2.5 g/dL (1.3-3.2); Total Protein,Serum 7.2 g/dl (6.3-8.2)
[2024-01-18 11:58] LABS: Calcium 9.8 mg/dl (8.4-10.2); Glucose 172 mg/dl (74-100)
[2024-01-18 12:32] LABS: Ferritin 45.7 ng/ml (17.9-464)
[2024-01-18 12:56] LABS: Hemoglobin A1C 7.2 % (4.0-6.0)
[2024-01-18 13:58] LABS: Vitamin B12 803 pg/mL (239-931)
[2024-01-18 14:05] LABS: Folate > 20.00 ng/mL
== END 2024-01-18 23:59 | disposition home or self-care (01) ==
LOC: LAB 11:10
PROVIDERS: PCP Emergency Medicine; Visit Provider Specialist
DX: E83.10 Disorder of iron metabolism, unspecified (principal); Z68.41 Body mass index [BMI] 40.0-44.9, adult; G62.9 Polyneuropathy, unspecified; I35.0 Nonrheumatic aortic (valve) stenosis; M79.661 Pain in right lower leg; M79.662 Pain in left lower leg; G25.81 Restless legs syndrome; Z95.1 Presence of aortocoronary bypass graft; I25.10 Atherosclerotic heart disease of native coronary artery without angina pectoris; E13.9 Other specified diabetes mellitus without complications
CPT/HCPCS: 36415; 80053; 82607; 82728; 82746; 83036; 85025

== ENCOUNTER 2024-07-29 12:55 | Outpatient (CLI) | payer MEDICARE, MEDICAID, SELFPAY ==
[2024-07-29 14:05] LABS: Chloride 99 mmol/L (98-107); Potassium 4.4 mmoL/L (3.5-5.1); Sodium 134 mmol/L (136-145)
[2024-07-29 14:08] LABS: Anion Gap 10.4 mEq/L (5-15); Blood Urea Nitrogen 23 mg/dl (9-20); Carbon Dioxide 29 mmol/L (22.0-30.0); Estimated Glomerular Filt Rate 55 ml/min (>60); GFR (African American) 66 ML/MIN (>60)
[2024-07-29 14:09] LABS: Calcium 9.7 mg/dl (8.4-10.2); Glucose 182 mg/dl (74-100)
[2024-07-29 14:44] LABS: Ferritin 111 ng/ml (17.9-464)
== END 2024-07-29 23:59 | disposition home or self-care (01) ==
LOC: LAB 12:56
PROVIDERS: Physician Assistant; PCP Emergency Medicine; Visit Provider Specialist
DX: E83.10 Disorder of iron metabolism, unspecified (principal); I10 Essential (primary) hypertension
CPT/HCPCS: 36415; 80048; 82728